=== PATIENT | male | born 1970 | race Caucasian/White ===

== ENCOUNTER 2017-06-07 06:35 | Day surgery (SDC) | payer BC ==
[~2017-06-07 06:35] MED LIST: Lactated Ringers 1,000 ML IV SCH; Sodium Chloride 0.9% 10 ML Syringe FLUSH PRN; Sodium Chloride 0.9% 2.5 ML Syringe FLUSH PRN; ceFAZolin 2 GM in Premix Bag 1 BAG IV ONE
[2017-06-07] MEDS ORDERED: Bupivacaine 0.5% 30 ML SDV ONE (07:17)
[2017-06-07] MEDS ORDERED: ceFAZolin 1 GM Vial ONE (07:19)
[2017-06-07] MEDS ORDERED: Lidocaine 2% 5 ML SDV ONE (07:34)
[2017-06-07] MEDS ORDERED: Dexamethasone 4 MG/ML 5 ML MDV ONE (07:34)
[2017-06-07] MEDS ORDERED: fentaNYL 250 MCG/5 ML SDV ONE (07:34)
[2017-06-07] MEDS ORDERED: HYDROmorphone 2 MG/ML Syringe ONE (07:34)
[2017-06-07] MEDS ORDERED: Midazolam 1 MG/ML 2 ML SDV ONE (07:34)
[2017-06-07] MEDS ORDERED: Propofol 200 MG/20 ML SDV ONE (07:34)
[2017-06-07] MEDS ORDERED: Rocuronium 10 MG/ML 10 ML Syringe ONE (07:34)
[2017-06-07] MEDS ORDERED: diphenhydrAMINE 50 MG/ML SDV ONE (07:36)
--- NOTE | 2017-06-07 07:44 | PCM.PREANE ---
Preanesthetic Assessment - Anesthesia/Transfusion/Family Hx Anesthesia History: No Prior Anesthesia Transfusion History: No Prior Transfusion(s) - Review of Systems General: No Symptoms Pulmonary: No Symptoms Cardiovascular: No Symptoms Gastrointestinal: No Symptoms Neurological: No Symptoms Other: Reports: None - Physical Assessment NPO Status Date: 06/07/17 NPO Status Time: 23:30 Height: 5 ft 10 in Weight: 80.739 kg ASA Class: 1 Mental Status: Alert & Oriented x3 Airway Class: Mallampati = 2 Dentition: Reports: Normal Dentition Thyro-Mental Finger Breadths: 3 Mouth Opening Finger Breadths: 3 ROM/Head Extension: Full Lungs: Clear to Auscultation, Normal Respiratory Effort Cardiovascular: Regular Rate, Regular Rhythm - Allergies Allergies/Adverse Reactions: Allergies Allergy/AdvReac Type Severity Reaction Status Date / Time No Known Allergies Allergy Verified 06/04/17 13:24 - Acknowledgements Anesthesia Type Planned: General Anesthesia Pt an Appropriate Candidate for the Planned Anesthesia: Yes Alternatives and Risks of Anesthesia Discussed w Pt/Guardian: Yes Pt/Guardian Understands and Agrees with Anesthesia Plan: Yes PreAnesthesia Questionnaire HEENT History: Reports: None Cardiovascular History: Reports: None Respiratory History: Reports: None Gastrointestinal History: Reports: None Genitourinary History: Reports: None Musculoskeletal History: Reports: None Neurological History: Reports: None Psychiatric History: Reports: None Endocrine/Metabolic History: Reports: None Hematologic History: Reports: None Immunologic History: Reports: None Oncologic (Cancer) History: Reports: None Dermatologic History: Reports: None - Infectious Disease History Infectious Disease History: Reports: None - SUBSTANCE USE Smoking Status *Q: Never Smoker Recreational Drug Use History: No - HOME MEDS Home Medications: Home Meds . [No Known Home Meds] 06/04/17 [History] - CURRENT (IN HOUSE) MEDS Current Meds: Current Medications Lactated Ringer's (Ringers, Lactated) 1,000 mls @ 125 mls/hr IV ASDIRECTED KAIT Sodium Chloride (Saline Flush) 10 ml FLUSH ASDIRECTED PRN PRN Reason: Keep Vein Open Sodium Chloride (Saline Flush) 2.5 ml FLUSH ASDIRECTED PRN PRN Reason: Keep Vein Open Discontinued Medications Bupivacaine HCl (Marcaine 0.5%) Confirm Administered Dose 30 ml .ROUTE .STK-MED ONE Stop: 06/07/17 07:18 Cefazolin Sodium (Ancef) Confirm Administered Dose 1 gm .ROUTE .STK-MED ONE Stop: 06/07/17 07:20 Dexamethasone (Dexamethasone) Confirm Administered Dose 20 mg .ROUTE .STK-MED ONE Stop: 06/07/17 07:35 Diphenhydramine HCl (Benadryl) Confirm Administered Dose 50 mg .ROUTE .STK-MED ONE Stop: 06/07/17 07:37 Fentanyl (Sublimaze) Confirm Administered Dose 250 mcg .ROUTE .STK-MED ONE Stop: 06/07/17 07:35 Hydromorphone HCl (Dilaudid) Confirm Administered Dose 2 mg .ROUTE .STK-MED ONE Stop: 06/07/17 07:35 Cefazolin Sodium/Dextrose 2 gm (/ Premix) 50 mls @ 100 mls/hr IV ONETIME ONE Stop: 06/06/17 14:27 Lidocaine (Xylocaine-Mpf 2%) Confirm Administered Dose 5 ml .ROUTE .STK-MED ONE Stop: 06/07/17 07:35 Midazolam HCl (Versed 1 Mg/Ml) Confirm Administered Dose 2 mg .ROUTE .STK-MED ONE Stop: 06/07/17 07:35 Propofol (Diprivan 20 Ml) Confirm Administered Dose 200 mg .ROUTE .STK-MED ONE Stop: 06/07/17 07:35 Rocuronium [place] (Zemuron) Confirm Administered Dose 100 mg .ROUTE .STK-MED ONE Stop: 06/07/17 07:35
[2017-06-07] MEDS ORDERED: Ketorolac 30 MG/ML SDV ONE (09:12)
--- NOTE | 2017-06-07 10:02 | PCM.OPNOTE ---
- General Post-Op/Procedure Note Date of Surgery/Procedure: 06/07/17 Operative Procedure(s): Left inginal hernia repair, umbilical hernia repair Findings: Left direct and indirect inguinal hernia. Small 3mm umbilical hernia Pre Op Diagnosis: inguinal hernia, umbilical hernia Post-Op Diagnosis: Left direct and indirect inguinal hernia, umbilical hernia Anesthesia Technique: General ET Tube Primary Surgeon: Linnea Mckay EBL in mLs: 25 Condition: Good
--- NOTE | 2017-06-07 10:40 | PCM.POSTAN ---
POST ANESTHESIA ASSESSMENT - MENTAL STATUS Mental Status: Alert, Oriented - RESPIRATORY Respiratory Status: Respiratory Rate WNL, Airway Patent, O2 Saturation Stable - CARDIOVASCULAR CV Status: Pulse Rate WNL, Blood Pressure Stable - GASTROINTESTINAL GI Status: No Symptoms - PAIN Pain Score: 2 - POST OP HYDRATION Hydration Status: Adequate & Stable
--- NOTE | 2017-06-07 11:28 | PCM48HPAN ---
Post Anesthesia Note - EVALUATION WITHIN 48HRS OF ANESTHETIC Vital Signs in Normal Range: Yes Patient Participated in Evaluation: Yes Respiratory Function Stable: Yes Airway Patent: Yes Cardiovascular Function Stable: Yes Hydration Status Stable: Yes Pain Control Satisfactory: Yes Nausea and Vomiting Control Satisfactory: Yes Mental Status Recovered: Yes - COMMENTS/OBSERVATIONS Free Text/Narrative:: Pt ready to go - no anesthesia complaints. Pt stable.
--- NOTE | 2017-06-08 15:22 | OR ---
SURGEON: JAZMIN ABURTO MD DATE OF PROCEDURE: 06/07/2017 PREOPERATIVE DIAGNOSES: Left inguinal hernia, umbilical hernia. POSTOPERATIVE DIAGNOSES: Left indirect and direct inguinal hernia, umbilical hernia. PROCEDURES PERFORMED: Left inguinal hernia repair and umbilical hernia repair. FLUIDS: See Anesthesia records. EBL: 25 mL. FINDINGS: Small left indirect hernia combined with a direct hernia, 2 mm umbilical hernia. COMPLICATIONS: None. INDICATIONS: The patient is a 46-year-old male who developed a left groin bulge over the summer. He had a recent MRI performed due to a hamstring tear, which revealed a very small left inguinal hernia. This was bothersome to the patient, and he would like to have it repaired. On physical exam, the patient was noted also to have a small umbilical hernia. The decision was made to proceed with a left inguinal hernia repair and umbilical hernia repair. I explained the procedure, expected perioperative course, and risks including bleeding, infection, or damage to surrounding structures. The patient verbalized understanding and wishes to proceed. PROCEDURE IN DETAIL: The patient was brought into the OR and placed on the OR table in the supine position. The time-out was completed verifying the patient's name, his date of , allergies, and procedure to be performed. General endotracheal anesthesia was induced. The abdomen and genitalia were prepped and draped in the usual standard fashion. The left inguinal ligament was identified from the pubic tubercle to the ASIS. Two fingerbreadths above the pubic tubercle, a transverse incision was made. First, the skin was anesthetized with 0.5% Marcaine plain and then an incision was made with a 15 blade scalpel approximately 6 cm in length. Dissection was carried down with cautery through Carlos's fascia maintaining hemostasis. Once the external oblique was identified it was incised along the length of its fibers with a 15 blade scalpel. Metzenbaum scissors were then used to extend the incision in both directions opening up the external oblique down to the external ring. Next, the external oblique was grasped with hemostats on both sides. The cord and cord structures as well as the hernia sac were freed up circumferentially and a Marmaduke drain was placed around it. Next, the hernia sac was identified at the anterior medial portion of the hernia sac and stripped down to the level of the internal ring. There was a small cord lipoma noted with this. These were able to be easily reduced back into the abdomen through the internal ring. The patient was also noted to have a bulge and weakness in the inguinal canal floor consistent with a direct hernia. A medium piece of mesh was then brought into the field and fixed to the pubic tubercle with interrupted 0 Ethibond suture. The inferior corner of the mesh was tacked to the inguinal shelf from medial to lateral with interrupted 0 Ethibond sutures. I then secured the superior aspect of the mesh to the transversalis fascia with interrupted sutures as well. A keyhole was transected along the mesh recreating the internal ring. The tails of the mesh were then secured together with interrupted 0 Ethibond sutures. The internal ring was made big enough just to accept the tip of my finger, which allowed for good perfusion to the cord without strangulation. The wound was then irrigated with normal saline, and the external oblique was brought back together with a running 3-0 Vicryl stitch. The subcutaneous fat was brought together with a running 3-0 Vicryl stitch. I then turned my attention to the umbilical hernia repair. The supraumbilical fold was anesthetized with 0.5% Marcaine plain. A 15 blade was used to create a semicircular incision along the supraumbilical fold. Cautery was then used to dissect down to the level of the subcutaneous fat. I carried this dissection down to the level of fascia. I identified the umbilical stalk. On either side of the umbilical stalk was a small 2 mm periumbilical defect consistent with his umbilical hernia. A decision was made to repair this primarily. The fascial edges were brought together and closed with 2 interrupted 0 Ethibond sutures. This effectively closed the defect. I then closed the subcuticular fat with interrupted 3-0 Vicryl and closed the skin along the inguinal repair and umbilical repair with running 4-0 Monocryl sutures. Steri-Strips and sterile dressings were applied to each. The patient tolerated the procedure well and was taken to PACU in a stable condition. ZAK VAZQUEZ /[id number]
== END 2017-06-07 12:15 | disposition home or self-care (01) ==
LOC: MW.SDS 06:35
PROVIDERS: ATTEND Surgery
DX: K40.90 Unilateral inguinal hernia, without obstruction or gangrene, not specified as recurrent (principal); K42.9 Umbilical hernia without obstruction or gangrene; Z91.048 Other nonmedicinal substance allergy status
CPT/HCPCS: 49505; 49585; J1100; J1170; J1200; J1885; J2250; J3010; J7120; 00830; C1781; J0690; J2704